=== PATIENT | male | born 1945 | race Caucasian/White ===

== ENCOUNTER 2022-10-20 23:33 | Emergency (ER) | payer OTHER ==
[~2022-10-20] VITALS: Ht 167.6 cm; Wt 103.0 kg
--- NOTE | 2022-10-20 23:45 | NUR ---
Dr. Matos at bedside. MSE in progress.
[2022-10-21] MEDS ORDERED: LIDOCAINE 2% (GLYDO= UROJET) 10 ML JELLY MM ONE ×2 (00:09→00:15)
--- NOTE | 2022-10-21 00:15 | NUR ---
BRANT Ferreira at bedside.
[2022-10-21 00:44] LABS: *BILIRUBIN,URIN NEGATIVE (NEGATIVE); *BLOOD, URINE 3+ (NEGATIVE); *CLARITY,URINE SLIGHTLY CLOUDY (CLEAR); *COLOR,URINE YELLOW (YELLOW); *KETONES,URINE NEGATIVE (NEGATIVE); *UROBILINOGEN,URINE 0.2 E.U./dl (NORMAL); LEUKOCYTE ESTERASE ,URINE 1+ (NEGATIVE); NITRITE, URINE POSITIVE (NEGATIVE); PH,URINE 8.5 (5.0-8.0)
[2022-10-21 00:52] LABS: UGLUCOSE 2+ (NEGATIVE)
[2022-10-21 00:55] LABS: RBC,URINE 50-80 /HPF (0-3)
[2022-10-21 00:56] LABS: BACTERIA,URINE FEW /HPF (NONE SEEN); SQUAMOUS EPITHELIAL CELL,UR MODERATE /HPF (NONE SEEN)
[2022-10-21] MEDS ORDERED: CEFTRIAXONE 1 G in IV DEXTROSE 5% 50 ML IV ONE (01:45)
[2022-10-21] MEDS ORDERED: CEFTRIAXONE /D5W 50ML IVPB **ER PYXIS IV ONE (01:47)
--- NOTE | 2022-10-21 02:45 | NUR ---
Dr. Matos at bedside.
[2022-10-21] MEDS ORDERED: SULF1TAB48 PO (02:51)
[2022-10-21] MEDS ORDERED: BLOO-1731 MC (02:54)
--- NOTE | 2022-10-21 03:40 | NUR ---
Patient discharged to home in stable condition. A/O x 4. NAD noted. Ambulatory with a steady gait. Written and verbal after care instructions given. Patient verbalizes understanding of instructions. Stressed follow up or return to ER for worsening s/s.
--- NOTE | 2022-10-21 03:45 | NUR ---
Pt left discharge paperwork and prescriptions at bedtime.
[2022-10-21 03:56] VITALS: BP 150/70
== END 2022-10-21 03:45 | disposition home or self-care (01) ==
LOC: ER 23:33
DX: N39.0 Urinary tract infection, site not specified (principal); T83.091A Other mechanical complication of indwelling urethral catheter, initial encounter; R33.9 Retention of urine, unspecified; Y73.8 Miscellaneous gastroenterology and urology devices associated with adverse incidents, not elsewhere classified; Y92.89 Other specified places as the place of occurrence of the external cause; J44.9 Chronic obstructive pulmonary disease, unspecified; E11.9 Type 2 diabetes mellitus without complications
CPT/HCPCS: 99284; 96365; 81001; 51702; 87040; J0696; A4663

== ENCOUNTER 2022-10-28 22:13 | Emergency (ER) | payer OTHER ==
[~2022-10-28] VITALS: Ht 167.6 cm; Wt 103.0 kg
[~2022-10-28 22:13] MED LIST: BLOO-1731 MC; SULF1TAB48 PO
[2022-10-28] MEDS ORDERED: ACETAMINOPHEN ES 500 MG TABLET ONE (22:43)
[2022-10-28] MEDS ORDERED: LIDOCAINE 2% (GLYDO= UROJET) 10 ML JELLY MM ONE ×2 (22:43→22:45)
[2022-10-28] MEDS ORDERED: ACETAMINOPHEN ES 500 MG TABLET PO ONE (22:45)
[2022-10-28 23:02] LABS: HEMATOCRIT 47.2 % (36.7-47.1); MEAN CORPUSCULAR VOLUME 82.2 fL (73.0-96.2); PLATELET COUNT (AUTO) 306 K/uL (152-348)
--- NOTE | 2022-10-28 23:06 | NUR ---
Indwelling matta catheter 16f coude placed. Draining green urine. aware
[2022-10-28 23:12] LABS: CREATININE 1.3 mg/dL (0.6-1.3); POTASSIUM 3.7 mmol/L (3.5-5.1)
[2022-10-28 23:17] LABS: BILIRUBIN,DIRECT 0.2 mg/dL (0.0-0.2); BILIRUBIN,TOTAL 0.8 mg/dL (0.2-1.0); TOTAL PROTEIN, SERUM 8.4 g/dL (6.4-8.2)
[2022-10-28] MEDS ORDERED: CEFTRIAXONE 1 G in IV DEXTROSE 5% 50 ML IV ONE (23:30)
--- NOTE | 2022-10-28 23:32 | NUR ---
Urine sample sent to lab
[2022-10-28] MEDS ORDERED: CEFTRIAXONE /D5W 50ML IVPB **ER PYXIS IV ONE (23:37)
[2022-10-28 23:39] LABS: *BILIRUBIN,URIN NEGATIVE (NEGATIVE); *BLOOD, URINE 3+ (NEGATIVE); *CLARITY,URINE CLEAR (CLEAR); *COLOR,URINE YELLOW (YELLOW); *KETONES,URINE 2+ (NEGATIVE); *UROBILINOGEN,URINE 0.2 E.U./dl (NORMAL); LEUKOCYTE ESTERASE ,URINE NEGATIVE (NEGATIVE); NITRITE, URINE NEGATIVE (NEGATIVE)
[2022-10-28 23:48] LABS: UGLUCOSE 3+ (NEGATIVE)
[2022-10-29 00:07] LABS: RBC,URINE 50-80 /HPF (0-3)
[2022-10-29 00:08] LABS: BACTERIA,URINE FEW /HPF (NONE SEEN); SQUAMOUS EPITHELIAL CELL,UR FEW /HPF (NONE SEEN); WBC,URINE NONE SEEN /HPF (0-3)
[2022-10-29] MEDS ORDERED: SULF1TAB48 PO (00:17)
--- NOTE | 2022-10-29 00:31 | NUR ---
Emptied 1L of brown urine.
--- NOTE | 2022-10-29 00:38 | NUR ---
Called [facility] for transport. grease cup filler ETA 30-40 minutes.
--- NOTE | 2022-10-29 00:45 | NUR ---
Patient cancelled [facility] ambulance for transportation back home. Patient stated [facility] and will drive himself home.
--- NOTE | 2022-10-29 01:13 | NUR ---
Patient discharged to home in stable condition. Written and verbal after care instructions given. Patient verbalizes understanding of instructions. Stressed follow up or return to ER for worsening s/s.
[2022-10-29 01:15] VITALS: BP 120/78
== END 2022-10-29 01:16 | disposition home or self-care (01) ==
LOC: ER 22:13
DX: N40.1 Benign prostatic hyperplasia with lower urinary tract symptoms (principal); R33.8 Other retention of urine; N39.0 Urinary tract infection, site not specified; E11.9 Type 2 diabetes mellitus without complications; J44.9 Chronic obstructive pulmonary disease, unspecified; I45.10 Unspecified right bundle-branch block; Z93.6 Other artificial openings of urinary tract status
CPT/HCPCS: 99284; 96365; 80076; 80048; 81001; 85025; 84145; 85730; 87040 ×2; 36415; 51702; 83605; 93005; J0696; A4663; A9150

== ENCOUNTER 2022-12-05 11:07 | Emergency (ER) | payer OTHER ==
[~2022-12-05] VITALS: Ht 167.6 cm; Wt 103.0 kg
--- NOTE | 2022-12-05 11:30 | NUR ---
Bladder irrigation commenced - drained clots, and sediments in urine - clouded - no ordor
[2022-12-05 11:43] LABS: HEMATOCRIT 48.7 % (36.7-47.1); MEAN CORPUSCULAR HEMOGLOBIN 27.1 uug (23.8-33.4); MEAN CORPUSCULAR VOLUME 81.6 fL (73.0-96.2); PLATELET COUNT (AUTO) 212 K/uL (152-348)
--- NOTE | 2022-12-05 11:50 | NUR ---
Catherised - urine specimen sent awaiting results
[2022-12-05 11:56] LABS: *BILIRUBIN,URIN NEGATIVE (NEGATIVE); *BLOOD, URINE 3+ (NEGATIVE); *CLARITY,URINE CLEAR (CLEAR); *COLOR,URINE RED (YELLOW); *KETONES,URINE NEGATIVE (NEGATIVE); *UROBILINOGEN,URINE 0.2 E.U./dl (NORMAL); LEUKOCYTE ESTERASE ,URINE 1+ (NEGATIVE); NITRITE, URINE NEGATIVE (NEGATIVE)
[2022-12-05 12:00] LABS: CARBON DIOXIDE 25 mmol/L (21-32); CHLORIDE 100 mmol/L (98-107); CREATININE 1.1 mg/dL (0.6-1.3); GLUCOSE 186 mg/dL (74-106); POTASSIUM 3.4 mmol/L (3.5-5.1); UREA NITROGEN, BLOOD 14 mg/dL (7-18)
--- NOTE | 2022-12-05 12:09 | NUR ---
1) Called [facility] re:bladder irrigation tubing and iv bag and more matta size 16- will be here in 5 mins
[2022-12-05] MEDS ORDERED: MORPHINE SULFATE 4 MG/1 ML DISP.SYRIN IV ONE (12:45)
[2022-12-05] MEDS ORDERED: ONDANSETRON 4 MG/2 ML VIAL IV ONE (12:45)
[2022-12-05] MEDS ORDERED: ONDANSETRON 4 MG/2 ML VIAL ONE (12:46)
[2022-12-05] MEDS ORDERED: MORPHINE SULFATE 4 MG/1 ML DISP.SYRIN ONE (12:46)
--- NOTE | 2022-12-05 13:04 | NUR ---
IM Morphine and Zofran administered - unable to insert iv access, not staying still, shouting and yelling - MD informed, changed order to IM
--- NOTE | 2022-12-05 13:05 | NUR ---
c/o of SOB - took own inhaler and seem to settle a bit.
[2022-12-05 13:40] LABS: UGLUCOSE 3+ (NEGATIVE)
[2022-12-05 13:41] LABS: BACTERIA,URINE MANY /HPF (NONE SEEN); RBC,URINE 0-3 /HPF (0-3); WBC,URINE 20-50 /HPF (0-3)
[2022-12-05] MEDS ORDERED: SULF1TAB48 PO (13:41)
[2022-12-05 13:42] LABS: SQUAMOUS EPITHELIAL CELL,UR FEW /HPF (NONE SEEN)
[2022-12-05] MEDS ORDERED: CEFTRIAXONE 1 G in IV DEXTROSE 5% 50 ML IV ONE (13:45)
--- NOTE | 2022-12-05 13:45 | NUR ---
Iv ATB administered as prescribed
[2022-12-05] MEDS ORDERED: CEFTRIAXONE 1 G VIAL ONE (14:36)
[2022-12-05] MEDS ORDERED: MORPHINE SULFATE 4 MG/1 ML DISP.SYRIN IM ONE (14:45)
[2022-12-05] MEDS ORDERED: ONDANSETRON 4 MG/2 ML VIAL IM ONE (14:45)
--- NOTE | 2022-12-05 14:46 | NUR ---
Patient wants to sleep off morphine before driving self home - MD aware
--- NOTE | 2022-12-05 16:28 | NUR ---
Patient discharged to home in stable condition. Written and verbal after care instructions given. Patient verbalizes understanding of instructions. Stressed follow up or return to ER for worsening s/s. Pt left to his car via wheelchair.
[2022-12-05 16:48] VITALS: BP 145/97
== END 2022-12-05 16:48 | disposition home or self-care (01) ==
LOC: ER 11:07
DX: N40.1 Benign prostatic hyperplasia with lower urinary tract symptoms (principal); R33.8 Other retention of urine; N39.0 Urinary tract infection, site not specified; E11.9 Type 2 diabetes mellitus without complications; I10 Essential (primary) hypertension; J44.9 Chronic obstructive pulmonary disease, unspecified; G89.29 Other chronic pain; M54.50 Low back pain, unspecified; Z98.890 Other specified postprocedural states; Z88.1 Allergy status to other antibiotic agents
CPT/HCPCS: 99284; 96374; 80048; 81001; 85025; 36415; 51702; 96372; J0696; J2405; J2270; J7040; A4663

== ENCOUNTER 2022-12-20 14:18 | Emergency (ER) | payer OTHER ==
[~2022-12-20] VITALS: Ht 167.6 cm; Wt 102.1 kg
--- NOTE | 2022-12-20 14:35 | NUR ---
77 years old male presents to er c/o back pain after falling from wheelchair denies hitting head.
[2022-12-20] MEDS ORDERED: LIDOCAINE 5% PATCH TD ONE ×2 (15:15→15:17)
[2022-12-20] MEDS ORDERED: KETOROLAC TROMETHAMINE 30 MG INJ IM ONE (16:15)
[2022-12-20] MEDS ORDERED: KETOROLAC TROMETHAMINE 30 MG INJ ONE (16:18)
--- NOTE | 2022-12-20 16:32 | NUR ---
patient ambulatory with steady gait, yelling, cursing at staff constantly meds given as requested per patient behavior unchanged.
[2022-12-20] MEDS ORDERED: FINA5TAB11 MT (17:40)
[2022-12-20] MEDS ORDERED: HYDR-4209 PO (17:51)
[2022-12-20 18:23] VITALS: BP 140/80
--- NOTE | 2022-12-20 18:24 | NUR ---
patient reassess pain improved condition stable d/c home with instructions after care reviewed understood left er ambulatory with steady gait.
== END 2022-12-20 18:25 | disposition home or self-care (01) ==
LOC: ER 14:18
DX: S20.213A Contusion of bilateral front wall of thorax, initial encounter (principal); I10 Essential (primary) hypertension; J44.9 Chronic obstructive pulmonary disease, unspecified; E11.9 Type 2 diabetes mellitus without complications; G89.29 Other chronic pain; M54.50 Low back pain, unspecified; Z88.1 Allergy status to other antibiotic agents; Z79.899 Other long term (current) drug therapy; W05.0XXA Fall from non-moving wheelchair, initial encounter; Y93.89 Activity, other specified; Y92.89 Other specified places as the place of occurrence of the external cause; Y99.8 Other external cause status
CPT/HCPCS: 99285; 71250; 96372; J1885; A4663

== ENCOUNTER 2023-01-27 15:44 | Inpatient (IN) | payer OTHER ==
[~2023-01-27] VITALS: Ht 167.6 cm; Wt 88.9 kg
[~2023-01-27 15:44] MED LIST changes: +FINA5TAB11 MT; +HYDR-4209 PO
[2023-01-27 16:10] LABS: HEMATOCRIT 27.3 % (36.7-47.1); MEAN CORPUSCULAR HEMOGLOBIN 25.4 uug (23.8-33.4); MEAN CORPUSCULAR VOLUME 79.2 fL (73.0-96.2); PLATELET COUNT (AUTO) 290 K/uL (152-348)
[2023-01-27 16:18] LABS: CARBON DIOXIDE 28 mmol/L (21-32); CHLORIDE 97 mmol/L (98-107); CREATININE 1.4 mg/dL (0.6-1.3); GLUCOSE 169 mg/dL (74-106); POTASSIUM 3.5 mmol/L (3.5-5.1); UREA NITROGEN, BLOOD 22 mg/dL (7-18)
[2023-01-27 16:27] LABS: ALANINE AMINOTRANSFERASE 21 U/L (16-63); ALKALINE PHOSPHATASE 77 U/L (50-136); ASPARTATE AMINOTRANSFERASE 19 U/L (15-37); BILIRUBIN,DIRECT 0.2 mg/dL (0.0-0.2); BILIRUBIN,TOTAL 0.4 mg/dL (0.2-1.0); TOTAL PROTEIN, SERUM 6.8 g/dL (6.4-8.2)
[2023-01-27] MEDS ORDERED: ACETAMINOPHEN 325 MG TABLET PO ONE (17:00)
[2023-01-27] MEDS ORDERED: IV NORMAL SALINE 500 ML BAG IV ONE (17:00)
[2023-01-27 17:21] LABS: *BILIRUBIN,URIN NEGATIVE (NEGATIVE); *BLOOD, URINE 2+ (NEGATIVE); *CLARITY,URINE SLIGHTLY CLOUDY (CLEAR); *KETONES,URINE NEGATIVE (NEGATIVE); *UROBILINOGEN,URINE 0.2 E.U./dl (NORMAL); LEUKOCYTE ESTERASE ,URINE 1+ (NEGATIVE); NITRITE, URINE POSITIVE (NEGATIVE)
[2023-01-27 17:30] LABS: *COLOR,URINE YELLOW (YELLOW); UGLUCOSE 3+ (NEGATIVE)
[2023-01-27 17:43] LABS: BACTERIA,URINE MODERATE /HPF (NONE SEEN); WBC,URINE 80-100 /HPF (0-3)
[2023-01-27 17:45] LABS: SQUAMOUS EPITHELIAL CELL,UR FEW /HPF (NONE SEEN); TRICHOMONAS,URINE NONE SEEN /HPF (NONE SEEN); YEAST,URINE NONE SEEN /HPF (NONE SEEN)
[2023-01-27] MEDS ORDERED: CEFTRIAXONE 1 G in IV DEXTROSE 5% 50 ML IV ONE (17:45)
[2023-01-27 17:46] LABS: CALCIUM CARBONATE CRYSTALS,UR NONE SEEN /HPF (NONE SEEN); CALCIUM OXALATE CRYSTALS,UR NONE SEEN /HPF (NONE SEEN); CALCIUM PHOSPHATE CRYSTALS,UR NONE SEEN /HPF (NONE SEEN); COARSE GRANULAR CASTS,URINE NONE SEEN /LPF; CYSTINE CRYSTALS,URINE NONE SEEN /HPF (NONE SEEN); FATTY CASTS,URINE NONE SEEN /LPF (NONE SEEN); MUCUS,URINE NONE SEEN /LPF (0-FEW); RED BLOOD CELL CASTS,URINE NONE SEEN /LPF (NONE SEEN); SPERM,URINE NONE SEEN /HPF (NONE SEEN); TRIPLE PHOSPHATE CRYSTAL,UR NONE SEEN /HPF (NONE SEEN); TYROSINE CRYSTAL,URINE NONE SEEN /HPF (NONE SEEN); URIC ACID CRYSTALS,URINE NONE SEEN /HPF (NONE SEEN); URINE AMORPHOUS PHOSPHATES NONE SEEN /HPF; URINE AMORPHOUS URATE NONE SEEN /HPF; WAXY CASTS,URINE NONE SEEN /LPF (NONE SEEN)
[2023-01-27] MEDS ORDERED: CEFTRIAXONE /D5W 50ML IVPB **ER PYXIS IV ONE (18:22)
[2023-01-27] MEDS ORDERED: MAGNESIUM HYDROXIDE 30 ML LIQUID UDC PO PRN (19:45)
[2023-01-27] MEDS ORDERED: ONDANSETRON 4 MG/2 ML VIAL IV PRN (19:45)
[2023-01-27 21:15] VITALS: BP 130/52
[2023-01-27] MEDS: HYDROCODONE/APAP 5-325MG TABLET PO PRN (21:39)
[2023-01-27] MEDS: DOCUSATE SODIUM 100 MG CAPSULE PO SCH (21:39)
[2023-01-27] MEDS: TEMAZEPAM 15 MG CAPSULE PO PRN (23:39)
[2023-01-28 04:00] VITALS: BP 139/60
[2023-01-28] MEDS: PANTOPRAZOLE SODIUM 40 MG TABLET.DR PO SCH (06:19)
[2023-01-28 08:02] LABS: HEMATOCRIT 29.9 % (36.7-47.1); MEAN CORPUSCULAR HEMOGLOBIN 25.5 uug (23.8-33.4); MEAN CORPUSCULAR VOLUME 78.4 fL (73.0-96.2); PLATELET COUNT (AUTO) 348 K/uL (152-348)
[2023-01-28 08:22] LABS: IRON, SERUM 10 ug/dL (50-175)
[2023-01-28 08:23] LABS: THYROID STIMULATING HORMONE 0.913 mIU/mL (0.358-3.740)
[2023-01-28 09:00] LABS: ALANINE AMINOTRANSFERASE 36 U/L (16-63); ALKALINE PHOSPHATASE 91 U/L (50-136); ASPARTATE AMINOTRANSFERASE 38 U/L (15-37); BILIRUBIN,TOTAL 0.4 mg/dL (0.2-1.0); CARBON DIOXIDE 29 mmol/L (21-32); CHLORIDE 95 mmol/L (98-107); CHOLESTEROL 134 mg/dL (<200); CREATININE 1.1 mg/dL (0.6-1.3); GLUCOSE 145 mg/dL (74-106); HDL CHOLESTEROL 63 mg/dL (40-60); MAGNESIUM 2.2 mg/dL (1.8-2.4); PHOSPHOROUS 3.3 mg/dL (2.5-4.9); POTASSIUM 3.5 mmol/L (3.5-5.1); TOTAL PROTEIN, SERUM 7.6 g/dL (6.4-8.2); TRIGLYCERIDES 67 MG/DL (30-150); UREA NITROGEN, BLOOD 17 mg/dL (7-18)
[2023-01-28] MEDS ORDERED: ENOXAPARIN SODIUM 30 MG/0.3 ML DISP.SYRIN SUBCUT SCH (09:00)
[2023-01-28] MEDS: FINASTERIDE 5 MG TABLET PO SCH (09:11)
[2023-01-28] MEDS: ENOXAPARIN SODIUM 40 MG/0.4 ML DISP.SYRIN SQ SCH (09:12)
[2023-01-28] MEDS: HYDROCODONE/APAP 5-325MG TABLET PO PRN ×2 (10:43→20:19)
[2023-01-28 12:00] VITALS: BP 121/61
[2023-01-28 13:13] LABS: *BILIRUBIN,URIN NEGATIVE (NEGATIVE); *BLOOD, URINE 2+ (NEGATIVE); *CLARITY,URINE CLEAR (CLEAR); *COLOR,URINE YELLOW (YELLOW); *KETONES,URINE NEGATIVE (NEGATIVE); *UROBILINOGEN,URINE 0.2 E.U./dl (NORMAL); LEUKOCYTE ESTERASE ,URINE 1+ (NEGATIVE); NITRITE, URINE NEGATIVE (NEGATIVE); PH,URINE 6.5 (5.0-8.0)
[2023-01-28 13:19] LABS: UGLUCOSE 3+ (NEGATIVE)
[2023-01-28 13:28] LABS: *CREATININE,URINE 44.6 mg/dL (30-125); *URINE TOTAL PROTEIN RANDOM 58.9 mg/dL (<150/24HR)
[2023-01-28] MEDS ORDERED: DEXTROSE 50% 50 ML DISP.SYRIN IV PRN (13:30)
[2023-01-28 13:43] LABS: BACTERIA,URINE FEW /HPF (NONE SEEN); CALCIUM CARBONATE CRYSTALS,UR NONE SEEN /HPF (NONE SEEN); CALCIUM OXALATE CRYSTALS,UR NONE SEEN /HPF (NONE SEEN); CALCIUM PHOSPHATE CRYSTALS,UR NONE SEEN /HPF (NONE SEEN); COARSE GRANULAR CASTS,URINE NONE SEEN /LPF; CYSTINE CRYSTALS,URINE NONE SEEN /HPF (NONE SEEN); FATTY CASTS,URINE NONE SEEN /LPF (NONE SEEN); MUCUS,URINE NONE SEEN /LPF (0-FEW); RBC,URINE 20-50 /HPF (0-3); RED BLOOD CELL CASTS,URINE NONE SEEN /LPF (NONE SEEN); SPERM,URINE NONE SEEN /HPF (NONE SEEN); SQUAMOUS EPITHELIAL CELL,UR NONE SEEN /HPF (NONE SEEN); TRICHOMONAS,URINE NONE SEEN /HPF (NONE SEEN); TRIPLE PHOSPHATE CRYSTAL,UR NONE SEEN /HPF (NONE SEEN); TYROSINE CRYSTAL,URINE NONE SEEN /HPF (NONE SEEN); URIC ACID CRYSTALS,URINE NONE SEEN /HPF (NONE SEEN); URINE AMORPHOUS PHOSPHATES NONE SEEN /HPF; URINE AMORPHOUS URATE NONE SEEN /HPF; WAXY CASTS,URINE NONE SEEN /LPF (NONE SEEN); WBC,URINE 80-100 /HPF (0-3); YEAST,URINE NONE SEEN /HPF (NONE SEEN)
[2023-01-28 16:07] VITALS: BP 133/60
[2023-01-28] MEDS: BLOOD SUGAR DIAGNOSTIC 1 EACH STRIP VI SCH ×2 (17:25→20:38)
[2023-01-28] MEDS: INSULIN REGULAR, HUMAN 300 UNIT/3 ML VIAL SQ PRN (17:26)
[2023-01-28] MEDS: CEFTRIAXONE 1 G in IV DEXTROSE 5% 50 ML IV SCH (17:35)
[2023-01-28 20:08] VITALS: BP 140/67
[2023-01-28] MEDS: DOCUSATE SODIUM 100 MG CAPSULE PO SCH (20:18)
[2023-01-28] MEDS: TEMAZEPAM 15 MG CAPSULE PO PRN (20:33)
[2023-01-29 04:02] VITALS: BP 138/66
[2023-01-29] MEDS: HYDROCODONE/APAP 5-325MG TABLET PO PRN ×3 (04:02→22:03)
[2023-01-29] MEDS: PANTOPRAZOLE SODIUM 40 MG TABLET.DR PO SCH (06:20)
[2023-01-29] MEDS: BLOOD SUGAR DIAGNOSTIC 1 EACH STRIP VI SCH ×4 (06:30→20:41)
[2023-01-29 06:48] LABS: HEMATOCRIT 26.9 % (36.7-47.1); MEAN CORPUSCULAR VOLUME 78.2 fL (73.0-96.2); PLATELET COUNT (AUTO) 311 K/uL (152-348)
[2023-01-29 07:19] LABS: BILIRUBIN,TOTAL 0.4 mg/dL (0.2-1.0); MAGNESIUM 2.2 mg/dL (1.8-2.4); POTASSIUM 3.6 mmol/L (3.5-5.1); TOTAL PROTEIN, SERUM 6.6 g/dL (6.4-8.2)
[2023-01-29] MEDS: FINASTERIDE 5 MG TABLET PO SCH (10:35)
[2023-01-29] MEDS: ENOXAPARIN SODIUM 40 MG/0.4 ML DISP.SYRIN SQ SCH (10:43)
[2023-01-29] MEDS: INSULIN REGULAR, HUMAN 300 UNIT/3 ML VIAL SQ PRN ×2 (12:41→16:57)
[2023-01-29] MEDS ORDERED: KETOROLAC TROMETHAMINE 15 MG INJ IVP ONE (13:45)
[2023-01-29 15:35] VITALS: BP 122/55
[2023-01-29] MEDS: CEFTRIAXONE 1 G in IV DEXTROSE 5% 50 ML IV SCH (16:59)
[2023-01-29 20:12] VITALS: BP 113/53
[2023-01-29] MEDS: DOCUSATE SODIUM 100 MG CAPSULE PO SCH (20:33)
[2023-01-30] MEDS: ACETAMINOPHEN 325 MG TABLET PO PRN (02:10)
[2023-01-30] MEDS: TEMAZEPAM 15 MG CAPSULE PO PRN ×2 (02:11→21:22)
[2023-01-30] MEDS ORDERED: MORPHINE SULFATE 2 MG/1 ML DISP.SYRIN IV ONE (03:00)
[2023-01-30 04:00] VITALS: BP 137/66
[2023-01-30 06:23] LABS: HEMATOCRIT 30.3 % (36.7-47.1); MEAN CORPUSCULAR VOLUME 78.7 fL (73.0-96.2); PLATELET COUNT (AUTO) 351 K/uL (152-348)
[2023-01-30] MEDS: BLOOD SUGAR DIAGNOSTIC 1 EACH STRIP VI SCH ×4 (06:30→21:20)
[2023-01-30] MEDS: PANTOPRAZOLE SODIUM 40 MG TABLET.DR PO SCH (06:30)
[2023-01-30 07:57] LABS: MAGNESIUM 2.3 mg/dL (1.8-2.4); PHOSPHOROUS 3.7 mg/dL (2.5-4.9)
[2023-01-30] MEDS: FINASTERIDE 5 MG TABLET PO SCH (08:19)
[2023-01-30] MEDS: ENOXAPARIN SODIUM 40 MG/0.4 ML DISP.SYRIN SQ SCH (08:20)
[2023-01-30] MEDS: INSULIN REGULAR, HUMAN 300 UNIT/3 ML VIAL SQ PRN ×3 (08:21→21:28)
[2023-01-30 11:45] VITALS: BP 133/61
[2023-01-30 13:53] LABS: *AMPHETAMINE, URINE NEGATIVE (NEGATIVE); *CANNABINOID, URINE POSITIVE (NEGATIVE); *COCCAINE, URINE NEGATIVE (NEGATIVE); *PHENCYCLIDINE SCREEN,URINE NEGATIVE (NEGATIVE)
[2023-01-30 14:06] LABS: A/G RATIO 0.7 (0.7-1.7); ALBUMIN 2.3 g/dL (2.9-4.4); ALPHA-1-GLOBULIN 0.5 g/dL (0.0-0.4); ALPHA-2-GLOBULIN 1.1 g/dL (0.4-1.0); GAMMA GLOBULIN 0.9 g/dL (0.4-1.8); GLOBULIN, TOTAL 3.5 g/dL (2.2-3.9); M-SPIKE Not Observed g/dL (Not Observed)
[2023-01-30] MEDS: HYDROCODONE/APAP 5-325MG TABLET PO PRN ×2 (14:06→21:22)
[2023-01-30 16:00] VITALS: BP 135/63
[2023-01-30] MEDS: CEFTRIAXONE 1 G in IV DEXTROSE 5% 50 ML IV SCH (18:39)
[2023-01-30 20:35] VITALS: BP 132/59
[2023-01-30] MEDS: DOCUSATE SODIUM 100 MG CAPSULE PO SCH (21:20)
[2023-01-31 03:44] VITALS: BP 135/69
[2023-01-31] MEDS: PANTOPRAZOLE SODIUM 40 MG TABLET.DR PO SCH (06:20)
[2023-01-31] MEDS: HYDROCODONE/APAP 5-325MG TABLET PO PRN ×3 (06:20→17:07)
[2023-01-31] MEDS: BLOOD SUGAR DIAGNOSTIC 1 EACH STRIP VI SCH ×4 (07:59→20:58)
[2023-01-31] MEDS: FINASTERIDE 5 MG TABLET PO SCH (09:58)
[2023-01-31] MEDS: ENOXAPARIN SODIUM 40 MG/0.4 ML DISP.SYRIN SQ SCH (10:32)
[2023-01-31] MEDS: INSULIN REGULAR, HUMAN 300 UNIT/3 ML VIAL SQ PRN ×3 (10:32→21:20)
[2023-01-31 11:38] VITALS: BP 143/63
[2023-01-31] MEDS: diphenhydrAMINE 25 MG CAP PO PRN (11:45)
[2023-01-31 16:02] VITALS: BP 115/53
[2023-01-31] MEDS: CEFTRIAXONE 1 G in IV DEXTROSE 5% 50 ML IV SCH (18:00)
[2023-01-31] MEDS: DOCUSATE SODIUM 100 MG CAPSULE PO SCH (20:51)
[2023-01-31 21:00] VITALS: BP 116/64
[2023-01-31] MEDS: ACETAMINOPHEN 325 MG TABLET PO PRN (22:02)
[2023-01-31] MEDS: TEMAZEPAM 15 MG CAPSULE PO PRN (22:02)
[2023-02-01] MEDS: HYDROCODONE/APAP 5-325MG TABLET PO PRN (03:32)
[2023-02-01] MEDS: BLOOD SUGAR DIAGNOSTIC 1 EACH STRIP VI SCH ×2 (06:00→12:19)
[2023-02-01] MEDS: PANTOPRAZOLE SODIUM 40 MG TABLET.DR PO SCH (06:00)
[2023-02-01 06:15] VITALS: BP 128/62
[2023-02-01 08:00] VITALS: BP 128/62
[2023-02-01] MEDS: FINASTERIDE 5 MG TABLET PO SCH (08:39)
[2023-02-01] MEDS ORDERED: CARISOPRODOL 350 MG TABLET PO PRN (08:45)
[2023-02-01] MEDS: ENOXAPARIN SODIUM 40 MG/0.4 ML DISP.SYRIN SQ SCH (08:47)
[2023-02-01] MEDS: INSULIN REGULAR, HUMAN 300 UNIT/3 ML VIAL SQ PRN (08:47)
[2023-02-01] MEDS: diphenhydrAMINE 25 MG CAP PO PRN (10:51)
[2023-02-01 11:39] VITALS: BP 136/42
== END 2023-02-01 13:55 | DRG 871 ==
LOC: ER 15:44 → MEDSURG3 20:02 → MED 01-30 19:17
PROVIDERS: ADMIT Internal Medicine; ATTEND Nurse Practitioner Acute Care
PROC: 05HY33Z Insertion of Infusion Device into Upper Vein, Percutaneous Approach (ICD-10-PCS; principal; 2023-01-29)
DX: A41.50 Gram-negative sepsis, unspecified (principal); G92.8 Other toxic encephalopathy; N17.0 Acute kidney failure with tubular necrosis; N39.0 Urinary tract infection, site not specified; E44.0 Moderate protein-calorie malnutrition; E87.1 Hypo-osmolality and hyponatremia; D68.59 Other primary thrombophilia; Z68.31 Body mass index [BMI] 31.0-31.9, adult; Z95.5 Presence of coronary angioplasty implant and graft; E88.09 Other disorders of plasma-protein metabolism, not elsewhere classified; E66.01 Morbid (severe) obesity due to excess calories; E86.0 Dehydration; D50.9 Iron deficiency anemia, unspecified; F41.9 Anxiety disorder, unspecified; J44.9 Chronic obstructive pulmonary disease, unspecified; R62.7 Adult failure to thrive; Z91.81 History of falling; N40.0 Benign prostatic hyperplasia without lower urinary tract symptoms; Z20.822 Contact with and (suspected) exposure to COVID-19; I25.10 Atherosclerotic heart disease of native coronary artery without angina pectoris; E11.9 Type 2 diabetes mellitus without complications; Z88.1 Allergy status to other antibiotic agents; Z86.73 Personal history of transient ischemic attack (TIA), and cerebral infarction without residual deficits; Z90.79 Acquired absence of other genital organ(s); R31.9 Hematuria, unspecified; R07.9 Chest pain, unspecified
CPT/HCPCS: 36415; 70450; 71045; 83550; 83735; 83970; 84100; 84153; 84155; 84165; 84300; 84443; 84484; 85025; 93005; 93307; A4663; G0378; J0696; J1650; J1815; J1885; J2270; J7040; Q0163